=== PATIENT | male | born 1955 | race African-American/Black ===

== ENCOUNTER 2017-01-12 01:06 | Emergency (ER) | payer OTHER ==
[2017-01-12 02:02] LABS: ANION GAP 5 MEQ/L (8-16); BLOOD UREA NITROGEN 10 MG/DL (7-18); CALCIUM LEVEL 9.4 MG/DL (8.8-10.2); CARBON DIOXIDE LEVEL 29 MEQ/L (21-32); CHLORIDE LEVEL 108 MEQ/L (98-107); CREATININE FOR GFR 1.03 MG/DL (0.70-1.30); GLOMERULAR FILTRATION RATE > 60.0 (>49); GLUCOSE, FASTING 117 MG/DL (80-110); POTASSIUM SERUM 4.6 MEQ/L (3.5-5.1); SODIUM LEVEL 142 MEQ/L (136-145)
[2017-01-12 02:21] LABS: BASO % 0.4 % (0.0-1.0); EOS # 0.1 K/mm3 (0.0-0.50); EOS % 1.1 % (0.0-3.0); LARGE UNSTAINED CELL # 0.1 K/mm3 (0.0-0.4); LARGE UNSTAINED CELL % 1.5 % (0.0-4.0); LYMPH # 1.5 K/mm3 (1.5-4.5); LYMPH % 16.2 % (24.0-44.0); MEAN CORPUSCULAR HEMOGLOBIN 31.2 pg (27.0-33.0); MEAN CORPUSCULAR HGB CONC 34.2 g/dl (32.0-36.5); MEAN CORPUSCULAR VOLUME 91.2 fl (80.0-96.0); MONO # 0.7 K/mm3 (0.0-0.8); MONO % 7.1 % (0.0-5.0); NEUTROPHILS % 73.8 % (36.0-66.0); PLATELET COUNT, AUTOMATED 221 k/mm3 (150-450); RED CELL DISTRIBUTION WIDTH 12.5 % (11.5-14.5); WHITE BLOOD COUNT 9.4 K/mm3 (4.0-10.0)
[2017-01-12] MEDS: NITROGLYCERIN 0.4 MG SUBL TABLET SL PRN ×2 (02:37→02:44)
[2017-01-12] MEDS ORDERED: GI COCKTAIL 50ML BTL(HYOSCYAMINE/MAALOX/LIDOCAINE VISCOUS)(1:3:1) PO ONE (03:45)
[2017-01-12] MEDS ORDERED: KETOROLAC 30 MG/ML VIAL (J1885) IV ONE (03:45)
[2017-01-12 04:29] VITALS: BP 117/59
--- NOTE | 2017-01-12 07:40 | REP ---
CHEST X-RAY: Two views. HISTORY: Chest pain. No comparison views. FINDINGS: EKG electrodes are seen. The lungs are well inflated and clear. No infiltrate is seen. Pleural angles are sharp. Heart size is normal. There are some degenerative changes in the acromioclavicular and in the sternoclavicular joints bilaterally. No acute bony abnormality is seen. Pulmonary vasculature is not increased. IMPRESSION: No active disease. Signed by Phil Grimes MD 01/12/2017 08:01 A
--- NOTE | 2017-01-12 09:05 | ECGEPIP ---
Stationary ECG Study [facility] - ED Test Date: 2017-01-12 Pat Name: MECCA KUO Department: Room: - Gender: M Income Tax Return Preparer: : [id number] Requested By: JERARDO Fernandez Order Number: [id number] Reading MD: Jesse Claudio Measurements Intervals [place] Rate: 71 P: 56 GA: 180 QRS: -25 QRSD: 78 T: 59 QT: 352 QTc: 385 Interpretive Statements SINUS RHYTHM BASELINE ARTIFACT AFFECTS INTERPRETATION NO PRIORS Electronically Signed On 01-12-2017 9:05:33 EDT by Jesse Claudio
== END 2017-01-12 04:40 | disposition home or self-care (01) ==
LOC: EDBD 01:06 → M ED 01:06
DX: R07.89 Other chest pain (principal); K92.9 Disease of digestive system, unspecified; Z88.0 Allergy status to penicillin; Z87.891 Personal history of nicotine dependence
CPT/HCPCS: 71020; 80048; 82550; 82553; 85025; 93005; 93041; 94760; 96374; 99285; J1885